=== PATIENT | female | born 2000 | race Caucasian/White ===

== ENCOUNTER → 2020-09-11 13:44 | Outpatient (BNVA) | payer OTHER, SELFPAY | PROVIDERS: Visit Provider Obstetrics & Gynecology | DX: Z32.01 Encounter for pregnancy test, result positive (principal) | CPT/HCPCS: 81025 ==

== ENCOUNTER → 2020-09-15 16:36 | Outpatient (BNVA) | payer OTHER, SELFPAY | PROVIDERS: Visit Provider Emergency Medicine | DX: R68.89 Other general symptoms and signs (principal); Z11.59 Encounter for screening for other viral diseases | CPT/HCPCS: 87400; 87635 ==

== ENCOUNTER 2021-03-13 19:11 | Outpatient (CLI) | payer MEDICAID, SELFPAY ==
[2021-03-13 19:11] VITALS: BMI 32.0
[2021-03-13 19:35] VITALS: BP 123/77; PULSE 91
[2021-03-13 19:37] VITALS: RESP 16; TEMP 37.1
[2021-03-13 19:38] VITALS: TEMP 37.1
[2021-03-13] MEDS: terbutaline 1 mg/mL INJ 0.25 MG SUBCUT (20:12)
[2021-03-13] MEDS: betamethasone susp 6 mg/mL 5 mL 12 MG IM (20:13)
[2021-03-13 21:13] VITALS: BP 133/73; PULSE 107; TEMP 36.6
[2021-03-13 21:38] VITALS: BP 133/73; PULSE 107; RESP 16; TEMP 36.6
== END 2021-03-13 21:38 | disposition home or self-care (01) ==
LOC: OPOB 19:21 → OBGYN 19:21
PROVIDERS: Visit Provider Family Medicine
DX: O26.899 Other specified pregnancy related conditions, unspecified trimester (principal); Z3A.00 Weeks of gestation of pregnancy not specified; R10.9 Unspecified abdominal pain
CPT/HCPCS: 59025; 96372; 99211; J0702; J3105

== ENCOUNTER 2021-03-14 20:15 | Outpatient (CLI) | payer MEDICAID, SELFPAY ==
[2021-03-14 20:40] VITALS: BP 134/88; PULSE 100; TEMP 36.3
[2021-03-14 20:42] VITALS: RESP 16
[2021-03-14 20:44] VITALS: BMI 31.1
[2021-03-14] MEDS: betamethasone susp 6 mg/mL 5 mL 12 MG IM (20:52)
[2021-03-14 21:21] VITALS: BP 118/70; PULSE 86; TEMP 36.4
[2021-03-14 21:33] VITALS: BP 118/70; PULSE 86; RESP 16; TEMP 36.4
== END 2021-03-14 21:33 | disposition home or self-care (01) ==
LOC: OPOB 20:33 → OBGYN 20:35
PROVIDERS: Visit Provider Family Medicine
DX: O26.899 Other specified pregnancy related conditions, unspecified trimester (principal); Z3A.00 Weeks of gestation of pregnancy not specified
CPT/HCPCS: 59025; 96372; J0702

== ENCOUNTER 2021-03-18 10:40 | Outpatient (CLI) | payer MEDICAID, SELFPAY ==
[2021-03-18 10:57] VITALS: BP 140/86; PULSE 127; TEMP 37.1
[2021-03-18 11:03] VITALS: RESP 17
[2021-03-18 11:05] VITALS: BMI 31.4
[2021-03-18 11:13] VITALS: BP 131/67; PULSE 108
[2021-03-18 11:28] VITALS: BP 120/66; PULSE 104
[2021-03-18 11:43] VITALS: BP 124/68; PULSE 105
[2021-03-18 11:58] VITALS: BP 119/62; PULSE 91
== END 2021-03-18 12:13 | disposition home or self-care (01) ==
LOC: OPOB 10:47 → OBGYN 10:48
PROVIDERS: Visit Provider Family Medicine
DX: O46.90 Antepartum hemorrhage, unspecified, unspecified trimester (principal); Z3A.00 Weeks of gestation of pregnancy not specified
CPT/HCPCS: 59025; 99211